=== PATIENT | male | born 2005 | race Caucasian/White ===

== ENCOUNTER 2024-03-31 22:04 | Emergency (ER) | payer MEDICAID, OTHER ==
[~2024-03-31] VITALS: Ht 172.7 cm; Wt 76.0 kg
[2024-03-31 22:07] VITALS: TEMP 98.4; O2SAT 97
[2024-04-01] MEDS ORDERED: IBUP-2029 MT (02:54)
[2024-04-01] MEDS ORDERED: CYCL10TA21 MT (02:54)
[2024-04-01 03:04] VITALS: BP 128/74; PULSE 95; RESP 18
[2024-04-01] MEDS: IBUPROFEN 600MG TABLET PO ONE (03:04)
== END 2024-04-01 03:28 | disposition home or self-care (01) ==
LOC: ER 22:04
DX: M54.50 Low back pain, unspecified (principal)
CPT/HCPCS: 99283